=== PATIENT | female | born 1940 | race Caucasian/White ===

== ENCOUNTER 2016-07-08 17:12 | Emergency (ER) | payer MEDICARE, OTHER ==
[2016-07-08 18:13] LABS: #Basophils 0.1 thou/uL (0.0-0.2); #Eosinphils 0.2 thou/uL (0.0-0.7); #Monocytes 0.6 thou/uL (0.11-0.59); #Neutrophils 3.8 thou/uL (1.40-6.50); %Eosinophils 2.7 % (0.0-10.0); %Monocytes 9.1 % (0.0-10.0); Hematocrit 31.6 % (36.0-47.0); Mean Platelet Volume 8.7 fL (7.4-10.4); White Blood Cell (WBC) Count 6.7 thou/uL (4.8-10.8)
[2016-07-08] MEDS ORDERED: Ketorolac Tromethamine 30 MG/ML VIAL ONE (18:15)
[2016-07-08 18:29] LABS: ALT (SGPT) 19 U/L (0-55); AST (SGOT) 25 U/L (5-34); Alkaline Phosphatase 117 U/L (40-150); Anion Gap 14 mmol/L (10-20); BUN (Urea Nitrogen) 15 mg/dL (9.8-20.1); Bilirubin, Total 0.3 mg/dL (0.2-1.2); Calc. Creatinine Clearance 0 mL/min (70-130); Carbon Dioxide 25 mmol/L (23-31); Chloride 104 mmol/L (98-107); Estimated GFR-MDRD 38; Globulin 3.9 g/dL (2.4-3.5); Protein, Total 7.8 g/dL (5.8-8.1)
[2016-07-08 18:30] LABS: Troponin I 0.023 ng/mL (< 0.028)
[2016-07-08] MEDS ORDERED: Iopamidol 370 76% 100 ML VIAL ONE (18:44)
--- NOTE | 2016-07-08 22:54 | RAD ---
CHEST TWO VIEWS: Date: 07-08-16 Comparison: 06-27-16, 10-20-15 FINDINGS: The heart is marginally larger today than it was in 2016. The vasculature seems a little more promi nent today than it was in the past. There is a little increased streaking in the lung bases. There may be a small amount of pleural effusion. Scoliosis is present as usual. The bones are osteoporo tic with at least one or two vertebral compressions in the thoracic region, not a new finding. Venkat t calcification is seen in the aortic arch. IMPRESSION: Very slight increase in heart size and very slight prominence to the vasculature compared to the eddie or studies. I cannot exclude very minimal congestive change. Additionally, there is a little extra streaking in the lung bases which could be related to this or infection. Serial follow up films reyes ggested. POS: HOME
--- NOTE | 2016-07-08 23:27 | CT ---
PRELIMINARY REPORT/[facility]/EMERGENCY AFTER HOURS PROCEDURE: EXAM: CT Angiography Chest With Intravenous Contrast. CLINICAL HISTORY: 76 years old, female; Pain and abnormal findings; Abnormal diagnostic tests; Elevated d-dimer; Chest pain; Left-sided chest pain; Patient HX: History provided by patient, 76f presents to the ed with c omplaints of left sided chest pain. She states the pain has been present for about two months, but i s worse today than in the past. The pain is sharp and stabbing, worse when she breathes or coughs, w orse when she lies down and better when she stands up. Elevated d-dimer. ; Additional info: Stage 3 renal disease with a gfr of 38. Dr luciano wanted to continue with the study knowing the risk. Instru cted to increase fluid intake. TECHNIQUE: Axial computed tomographic angiography images of the chest with intravenous contrast using pulmonary embolism protocol. Coronal and sagittal reformatted images were created and reviewed. CONTRAST: 60 mL of ISOVUE 370 administered intravenously. COMPARISON: No relevant prior studies available. FINDINGS: Pulmonary arteries: No pulmonary embolism. The pulmonary arteries are normal in size Aorta: No thoracic aortic aneurysm. No dissection. Lungs: Patchy areas of poorly defined groundglass attenuation likely representing distal small airwa y atelectasis. Underlying central lobular emphysematous disease. Minimal probable chronic interstiti al thickening. Biapical pleural-parenchymal scarring. Pleural space: Trace RIGHT pleural effusion. Heart: No cardiomegaly or significant pericardial effusion. Bones/joints: Moderate osteopenia with mild dextroscoliosis. T10 compression deformity of indetermin ate age and etiology. Soft tissues: Unremarkable. Lymph nodes: No enlarged lymph nodes. IMPRESSION: No evidence of pulmonary embolism. Ill-defined areas of groundglass disease likely representing distal small airway atelectasis with un derlying chronic inflammatory changes and centrilobular emphysematous disease There are additional nonemergent findings discussed in the body of the report. Thank you for allowing us to participate in the care of your patient. Dictated and Authenticated by: Ronald Barton MD 07/08/2016 8:57 PM Central Time ([place] \T\ [place]) FINAL REPORT CT ANGIO OF THE CHEST: Date: 07-08-16 Technique: Spiral CT of the chest was performed for evaluation of chest pain which has worsened. A xial slices were acquired after a bolus of IV contrast was given. Coronal reformations through the pulmonary arteries were done afterwards. The patient has a very low GFR at 38. The offer was made to transfer her for a VQ scan instead, but it was felt by the ordering physician that the study was indicated as is. A reduced amount (60 cc) of Isovue was used for the contrast medium. My understan ding is that the patient was instructed by the ER to increase fluid intake afterwards. FINDINGS: There is excellent opacification of the pulmonary arteries. No filling defects were seen to suggest emboli. The aorta showed no aneurysm or dissection. The heart showed no pericardial fluid. The main findings on the study were patchy areas of poorly defined ground glass densities present bi laterally throughout the lungs. This is on top of baseline emphysematous changes. A minimal amount of pleural fluid was suggested on the right. The differential for these findings is wide and could include chronic interstitial changes or distal small airway atelectasis. Infection is possible as the lungs do not seem as clear on plain radiograph as they were on prior studies. There is a compression of one of the lower thoracic vertebrae approximately T10, age indeterminate. The bones are somewhat osteopenic. IMPRESSION: 1. No evidence of pulmonary emboli. 2. Patchy ground glass densities through the lungs bilaterally, on top of back ground of emphysemat ous change. See comments above regarding differential. Thought to be due to more acute changes parviz n chronic because her chest xray today show hazier lungs than chest xrays in the recent past. 3. T10 compression, probably not acute. POS: HOME
== END 2016-07-08 21:39 | disposition home or self-care (01) ==
LOC: BURERS 17:12
DX: I10 Essential (primary) hypertension (principal); G40.909 Epilepsy, unspecified, not intractable, without status epilepticus; Z79.82 Long term (current) use of aspirin; Z79.899 Other long term (current) drug therapy
CPT/HCPCS: 71020; 71275; 80053; 82553; 84484; 85025; 85379; 93005; 96361; 96374; A4216; J1885

== ENCOUNTER 2017-05-23 03:52 | Emergency (ER) | payer MEDICARE, OTHER ==
[2017-05-23 04:31] LABS: ALT (SGPT) 1422 U/L (8-55); AST (SGOT) 1482 U/L (5-34); Albumin 2.4 g/dL (3.4-4.8); Alkaline Phosphatase 109 U/L (40-150); Anion Gap 22 mmol/L (10-20); BUN (Urea Nitrogen) 18 mg/dL (9.8-20.1); Bilirubin, Total Less than 0.2 mg/dL (0.2-1.2); Calc. Creatinine Clearance 0 mL/min (70-130); Carbon Dioxide 11 mmol/L (23-31); Chloride 114 mmol/L (98-107); Estimated GFR-MDRD 33; Globulin 2.4 g/dL (2.4-3.5); Glucose 455 mg/dL (83-110); Potassium 4.1 mmol/L (3.5-5.1); Protein, Total 4.8 g/dL (6.0-8.3); Sodium 143 mmol/L (136-145)
[2017-05-23 04:35] LABS: Calcium 12.4 mg/dL (7.8-10.44)
[2017-05-23 04:35] LABS: CKMB 4.3 ng/mL (0-6.6)
[2017-05-23 04:37] LABS: Troponin I 0.706 ng/mL (< 0.028)
[2017-05-23 04:46] LABS: Band 4 % (5-11); Eosinophils 1 % (0-10); Hemoglobin 9.1 g/dL (12.0-16.0); Hypochromia SLIGHT = 6-15 cells (100X) (0-5/hpf); Lymphocytes 73 % (21-51); MDiff Complete? YES; Mean Corpuscular HGB CONC 31.7 g/dL (32.0-36.0); Mean Corpuscular Hemoglobin 30.5 pg (27.0-31.0); Mean Corpuscular Volume 96.5 fl (81.0-99.0); Mean Platelet Volume 7.5 fL (7.4-10.4); Monocytes 2 % (0-10); Neutrophil 20 % (42-75); PLT Morphology Comment Appears Decreased; Platelet Count 65 thou/uL (130-400); RBC Distribution Width 11.9 % (11.5-14.5); Red Blood Cell (RBC) Count 2.96 mill/uL (4.20-5.40); White Blood Cell (WBC) Count 7.2 thou/uL (4.8-10.8)
== END 2017-05-23 04:05 | disposition expired ==
LOC: BURERS 03:52
DX: I46.9 Cardiac arrest, cause unspecified (principal); G40.909 Epilepsy, unspecified, not intractable, without status epilepticus; Z86.73 Personal history of transient ischemic attack (TIA), and cerebral infarction without residual deficits
CPT/HCPCS: 36415; 80053; 82553; 84484; 85025; 92950